=== PATIENT | female | born 1990 | race Caucasian/White ===

== ENCOUNTER 2016-07-22 16:52 | Emergency (ER) | payer MEDICAID ==
--- NOTE | 2016-07-22 19:14 | ED Physician Chart ---
Chief Complaint/HPI - Patient Information Date Seen:: 07/22/16 Time Seen:: 19:09 Chief Complaint:: nose bleed History of Present Illness:: pt here for nosebleed. says [place] was on a train and has felt dehydrated and started w spontaneous nose bleed. pt says it resolved quickly 5-10 min but bystanders were upset and called ems. pt has no hx of prior nose or other bleed or bruising . no recent injury. feels fine now. no wyatt. no sob. no gi upset. pt has a bracelet on that says [facility] and admits to having been released yesterday. says she is staying w friends. Allergies:: Allergies Allergy/AdvReac Type Severity Reaction Status Date / Time No Known Allergies Allergy Verified 07/22/16 16:57 Vitals:: Vital Signs - 8 hr 07/22/16 16:58 Temp 98.5 F HR 109 RR 17 BP 115/59 O2 Sat % 94 Historian:: Patient Review of Systems - Review of Systems General/Constitutional: No fever, No chills, No weight loss, No weakness, No diaphoresis, No edema, No loss of appetite Skin: No skin lesions, No rash, No bruising Head: No headache, No light-headedness Eyes: No loss of vision, No pain, No diplopia ENT: No earache, Nasal drainage, No sore throat, No tinnitus Neck: No neck pain, No swelling, No thyromegaly, No stiffness, No mass noted Cardio Vascular: No chest pain, No palpitations, No PND, No orthopnea, No edema Pulmonary: No SOB, No cough, No sputum, No wheezing GI: No nausea, No vomiting, No diarrhea, No pain, No melena, No hematochezia, No constipation, No hematemesis G/U: No dysuria, No frequency, No hematuria Musculoskeletal: No bone or joint pain, No back pain, No muscle pain Endocrine: No polyuria, No polydipsia Psychiatric: No prior psych history, No depression, No anxiety, No suicidal ideation Hematopoietic: No bruising, No lymphadenopathy Allergic/Immuno: No urticaria, No angioedema Neurological: No syncope, No focal symptoms, No weakness, No paresthesia, No headache, No seizure, No dizziness, No confusion, No vertigo Past Medical History - Past Medical History Past Medical History: No significant medical hx Social History: Alcohol (pt denies) Medication: Reviewed Physical Exam - Physical Examination General/Constitutional: Awake, Well-developed, well-nourished, Alert, No distress, GCS 15, Non-toxic appearing, Ambulatory Other Gen/Cons comments:: pt is alert and in no physical distress at this time. she is smiling broadly and inapropriately at my exam time. a short time earlier she was yelling inapropriately while on stretcher in crowded entrance way. she seems overall stable w no bleed seen during ed stay. pt is somewhat dirty and has noticable odor of etoh..although her speech, actions and coordniation are all within acceptable limits for public release. Head: Atraumatic Eyes: Lids, conjuctiva normal, PERRL, EOMI Skin: Nl inspection, No rash, No skin lesions, No ecchymosis, Well hydrated, No lymphadenopathy ENMT: External ears, nose nl, Nasal exam nl, Lips, teeth, gums nl, Oropharynx nl , Tonsils nl Other ENMT comments:: no active external bleed. no blood in oropharynx. blood notable in nose by ant kiesselbachs plexus on rt nare. no nasal bone deformity. Neck: Nontender, Full ROM w/o pain, No JVD, No nuchal rigidity, No bruit, No mass, No stridor Respiratory: Nl effort/Exclusion, Clear to Auscultation, No Wheeze/Rhonchi/Rales Cardio Vascular: RRR, No murmur, gallop, rubs, NL S1 S2 GI: No tenderness/rebounding/guarding, No organomegaly, No hernia, Normal BS's, Nondistended, No mass/bruits, No McBurney tenderness : No CVA tenderness Extremities: No tenderness or effusion, Full ROM, normal strength in all extremities, No edema, Normal digits & nails Neuro/Psych: Alert/oriented, DTR's symmetric, Normal sensory exam, Normal motor strength, Judgement/insight normal, Mood normal, Normal gait, No focal deficits Misc: normal gait, Normal back, No paraspinal tenderness ED Septic Shock - . Is Septic Shock (SBP<90, OR Lactate>4 mmol\L) present?: No - <6hrs of presentation: Vital Signs: Vital Signs - 8 hr 07/22/16 16:58 Temp 98.5 F HR 109 RR 17 BP 115/59 O2 Sat % 94 Reassessment (Disposition) - Reassessment Reassessment Condition:: Unchanged - Diagnosis Diagnosis:: 1 s/p epistaxis ...resolved. - Aftercare/Follow up Instructions Notes:: avoid nsaids. hold pressure x 10 min if bleed returns. return if uncontrolable bleed or weakness or chest pain. no heavy lifting or straining. keep inside nose moistened w bacitracin or vasoline. - Patient Disposition Discharge/Transfer:: Home Condition at Disposition:: Improved
== END 2016-07-22 19:45 | disposition home or self-care (01) ==
LOC: ER 16:52
DX: R04.0 Epistaxis (principal)
CPT/HCPCS: Z7502